=== PATIENT | male | born 1960 | race Caucasian/White ===

== ENCOUNTER 2016-09-10 19:38 | Emergency (ER) | payer OTHER, MEDICARE ==
--- NOTE | 2016-09-10 19:46 | ED AMS/SEIZURE/WEAK/DIZZY ---
History of Present Illness General Chief Complaint: Seizure Stated Complaint: SEIZURE Source: patient Exam Limitations: no limitations Vital Signs & Intake/Output Vital Signs & Intake/Output Vital Signs Date Time Temp Pulse Resp B/P B/P Pulse O2 O2 Flow FiO2 Mean Ox Delivery Rate 09/10 2314 98.0 96 18 126/66 09/10 2313 96 18 126/66 95 Room Air 09/11 2115 98.0 120 18 114/56 09/11 2115 98.0 120 18 114/56 95 Room Air 09/10 2009 98 Room Air 09/11 1939 98.6 134 18 148/76 98 Room Air Allergies Coded Allergies: No Known Allergies (09/10/16) Reconcile Medications Lisinopril 10 MG TABLET 1 TAB PO DAILY BP (Reported) Metformin HCl 500 MG TABLET 1 TAB PO BID DM (Reported) Triage Nurses Notes Reviewed? yes Onset: Abrupt Duration: minute(s): Timing: single episode today Injury Environment: home Severity: moderate Modifying Factors: Improves With: rest. Associated Symptoms: confusion HPI: 55 yo gentleman h/o prior seizure in July 2016, reportedly treated at [facility]. presents with seizures. The medics share, "He was sitting on his front stoop. His neighbor heard him "gasp for breath and breathe funny. He was unconscious for awhile... They called us... When we got there a few minutes later, he was confused, breathing funny, and just coming out of it... Now he is doing much better." He does not recall the event Past History Travel History Traveled to [place] past 21 day No Medical History Any Pertinent Medical History? see below for history Neurological: seizure Cardiovascular: hypertension Endocrine: diabetes Surgical History Surgical History: unobtainable Family History Hx Contributory? No Review of Systems Review of Systems Constitutional: Reports: no symptoms. EENTM: Reports: no symptoms. Respiratory: Reports: no symptoms. Cardiovascular: Reports: no symptoms. GI: Reports: no symptoms. Genitourinary: Reports: no symptoms. Musculoskeletal: Reports: no symptoms. Skin: Reports: no symptoms. Neurological/Psychological: Reports: no symptoms. Hematologic/Endocrine: Reports: no symptoms. Immunologic/Allergic: Reports: no symptoms. All Other Systems: Reviewed and Negative Physical Exam Physical Exam General Appearance: well developed/nourished, no apparent distress Head: atraumatic, normal appearance Eyes: Bilateral: normal appearance, PERRL, EOMI. Ears, Nose, Throat: normal pharynx, normal ENT inspection Neck: normal inspection, supple, full range of motion Respiratory: normal breath sounds, chest non-tender, no respiratory distress, quiet respiration, lungs clear Cardiovascular: regular rate/rhythm Gastrointestinal: normal bowel sounds, soft, non-tender, no organomegaly Back: normal inspection Extremities: normal range of motion Neurologic/Psych: no motor/sensory deficits, awake, alert, oriented x 3 Skin: intact, normal color, warm/dry Core Measures ACS in differential dx? No CVA/TIA Diagnosis: No Severe Sepsis Present: No Septic Shock Present: No Progress Differential Diagnosis: seizure vs pseudoseizure vs syncope vs other. Plan of Care: Orders Procedure Date/time Status TROPONIN LEVEL 09/10 2300 Complete EKG 09/10 2299 Active LIPASE 09/10 2224 Complete COMPREHENSIVE METABOLIC PANEL 09/10 2224 Complete AMYLASE 09/10 2224 Complete PROLACTIN 09/10 1957 Complete Pathway - chart 09/10 1953 Active CIWA 09/10 1953 Active URINE DRUG SCREEN FOR ER ONLY 09/10 1946 Complete URINALYSIS 09/10 1946 Complete LIPASE 09/10 1946 Complete HEPATIC FUNCTION PANEL 09/10 1946 Complete ETHANOL 09/10 1946 Complete CBC WITHOUT DIFFERENTIAL 09/10 1946 Complete BASIC METABOLIC PANEL 09/10 1946 Complete AMYLASE 09/10 1946 Complete EKG 09/10 1946 Active Current Medications Sig/Puja Start time Last Medication Dose Stop Time Status Admin Lorazepam 2 MG Q2P PRN 09/11 1999 AC (Ativan) Lorazepam 1 MG Q2P PRN 09/11 1999 AC (Ativan) Laboratory Tests 09/10/16 2254: Troponin I < 0.01 09/10/16 225: Anion Gap 10, Estimated GFR > 60, BUN/Creatinine Ratio 12.2, Glucose 117 H, Calcium 8.8, Total Bilirubin 1.7 H, AST 70 H, ALT 50, Alkaline Phosphatase 70, Total Protein 6.7, Albumin 3.7, Globulin 3.0, Albumin/Globulin Ratio 1.2, Amylase 123 H, Lipase 444 H 09/10/162: Urine Opiates Screen < 100.00, Methadone Screen < 40, Barbiturate Screen < 60, Ur Phencyclidine Scrn < 6.00, Amphetamines Screen < 100, U Benzodiazepines Scrn < 85, Urine Cocaine Screen < 50, Urine Cannabis Screen < 5.00, Urinalysis MOD H , Urine Color YEL, Urine Clarity HAZY H, Urine pH 6.0, Ur Specific [place] 1.025, Urine Protein 100 H, Urine Ketones TRACE H, Urine Nitrite NEG, Urine Bilirubin NEG, Urine Urobilinogen 4.0 H, Ur Leukocyte Esterase SMALL H, Ur Microscopic SEDIMENT EXAMINED, Urine RBC 1-3, Urine WBC 15-25 H, Ur Epithelial Cells RARE, Urine Bacteria FEW H, Hyaline Casts FEW H, Urine Hemoglobin TRACE- LYSED H, Urine Glucose 100 H 09/10/161999: Prolactin 46.3 H 09/10/16 2000: Anion Gap 23 H, Estimated GFR > 60, BUN/Creatinine Ratio 10.9, Glucose 148 H, Calcium 9.6, Total Bilirubin 2.2 H, Direct Bilirubin 1.0 H, AST 105 H, ALT 49 , Alkaline Phosphatase 79, Total Protein 7.8, Albumin 4.7, Amylase 146 H, Lipase 482 H, CBC w Diff NO MAN DIFF REQ, RBC 3.66 L, MCV 86.8, MCH 28.4, RDW 16.9 H, MPV 7.3 L, Gran % 55.0, Lymphocytes % 29.6, Monocytes % 12.1 H, Eosinophils % 2.2, Basophils % 1.1, Absolute Granulocytes 3.5, Absolute Lymphocytes 1.9, Absolute Monocytes 0.8 H, Absolute Eosinophils 0.1, Absolute Basophils 0.1, PUBS MCHC 32.7 L, Serum Alcohol < 10.0 Diagnostic Imaging: Viewed by Me: CT Scan. Discussed w/RAD: CT Scan. Radiology Impression: HEAD/CERVICAL CT... NO ACUTE CHANGE... FULL REPORT BELOW. Initial ED EKG: normal axis, normal intervals, normal p-waves, normal QRS complex, normal sinus rhythm Repeat EKG: unchanged Comments: PATIENT: SHARMAINE HENRY PRESENT AGE: 55 PATIENT ACCOUNT NO: [id number] : 56 LOCATION: [facility] ORDERING PHYSICIAN: ZAIDA RODRIGUEZ MD SERVICE DATE: 09/10/16 EXAM TYPE: CAT - CT CERV SPINE WO IV CONTRAST; CT HEAD WO IV CONTRAST EXAMINATION: CT HEAD WITHOUT CONTRAST CT CERVICAL SPINE WITHOUT CONTRAST CLINICAL INFORMATION: Mental status change. Fall, trauma, seizure. COMPARISON: No relevant prior studies are available for comparison. TECHNIQUE: Contiguous axial imaging was performed from the skull base to vertex without intravenous administration of contrast. Axial images of the cervical spine were obtained. Sagittal and coronal reconstructions were provided and reviewed. DLP: 1199.38 mGy-cm (total). FINDINGS: CT HEAD: The ventricles and sulci are prominent consistent with patient's age. No visualized masses or midline shift are seen. There is no intra-axial or extra-axial hemorrhage. There are no fluid collections. Mild decreased attenuation is seen in the periventricular white matter compatible with chronic small vessel ischemic disease. The short-white discrimination is preserved. There is mucoperiosteal thickening of the posterior right ethmoid air cells. Otherwise, the included paranasal sinuses and mastoid air cells are well aerated. The calvarium is intact. CT CERVICAL SPINE: Cervical lordosis is preserved. There is no evidence of a fracture or dislocation of the cervical spine. The disc height spaces are maintained. Endplate osteophytes are seen within the lower cervical spine. There is no neural foraminal narrowing. There is no central canal stenosis. The visualized skull base is unremarkable.The prevertebral soft tissue appears unremarkable. The visualized lung apices are unremarkable. IMPRESSION: CT HEAD: No intracranial hemorrhage or mass effect. Mild generalized atrophy and mild chronic small vessel white matter ischemic changes. CT CERVICAL SPINE: No fracture or subluxation. Mild degenerative changes within the lower cervical spine. DICTATED BY: BAM FARIAS MD DATE/TIME DICTATED:09/10/162035 SECURITY ADVISOR:SHAHBAZ DATE/TIME TRANSCRIBED:09/10/162035 CONFIDENTIAL, DO NOT COPY WITHOUT APPROPRIATE AUTHORIZATION. <Electronically signed in Other Vendor System> SIGNED BY: BAM FARIAS MD [id number] Departure Departure Disposition: STILL A PATIENT Condition: Stable Clinical Impression Primary Impression: Mental status change resolved Referrals: ALIN RANDLE MD Departure Forms: Customer Survey General Discharge Information Comments 09/10/16, 22:53...discussed with dr. beard... pt safe for discharge... he will see her in follow up. 09.10.16, 23:47... pt feeling well, awake and alert. he declines admission. his ciwa score is zero, with a negative alcohol level. He does not confer significant alcohol intake (3 beers intermittently).
[2016-09-10] MEDS ORDERED: METFORMIN HCL500 M3 PO (19:53)
[2016-09-10] MEDS ORDERED: LISINOPRIL10 M1 PO (19:54)
[2016-09-10 20:08] LABS: ABSOLUTE BASOPHIL COUNT 0.1 /CUMM (0.0-0.2); ABSOLUTE EOSINOPHIL COUNT 0.1 /CUMM (0.0-0.7); ABSOLUTE GRANULOCYTE CT 3.5 /CUMM (1.4-6.5); ABSOLUTE LYMPH COUNT 1.9 /CUMM (1.2-3.4); ABSOLUTE MONOCYTE COUNT 0.8 /CUMM (0.10-0.60); BASOPHIL % 1.1 % (0.0-2.0); EOSINOPHIL % 2.2 % (0-5); HEMATOCRIT 31.8 % (42-52); MEAN CORPUSCULAR HGB 28.4 PG (27.0-31.0); MEAN CORPUSCULAR HGB CONC 32.7 G/DL (33.0-37.0); MEAN CORPUSCULAR VOLUME 86.8 FL (80.0-94.0); MEAN PLATELET VOLUME 7.3 FL (7.4-10.4); PLATELET COUNT 187 /CUMM (130-400); RBC DISTRIBUTION WIDTH 16.9 % (11.5-14.5); RED BLOOD CELL CT 3.66 /CUMM (4.70-6.10); WHITE BLOOD CELL COUNT 6.4 /CUMM (4.8-10.8)
--- NOTE | 2016-09-10 21:13 | CT SCAN REPORT ---
EXAMINATION: CT HEAD WITHOUT CONTRAST CT CERVICAL SPINE WITHOUT CONTRAST CLINICAL INFORMATION: Mental status change. Fall, trauma, seizure. COMPARISON: No relevant prior studies are available for comparison. TECHNIQUE: Contiguous axial imaging was performed from the skull base to vertex without intravenous administration of contrast. Axial images of the cervical spine were obtained. Sagittal and coronal reconstructions were provided and reviewed. DLP: 1199.38 mGy-cm (total). FINDINGS: CT HEAD: The ventricles and sulci are prominent consistent with patient's age. No visualized masses or midline shift are seen. There is no intra-axial or extra-axial hemorrhage. There are no fluid collections. Mild decreased attenuation is seen in the periventricular white matter compatible with chronic small vessel ischemic disease. The short-white discrimination is preserved. There is mucoperiosteal thickening of the posterior right ethmoid air cells. Otherwise, the included paranasal sinuses and mastoid air cells are well aerated. The calvarium is intact. CT CERVICAL SPINE: Cervical lordosis is preserved. There is no evidence of a fracture or dislocation of the cervical spine. The disc height spaces are maintained. Endplate osteophytes are seen within the lower cervical spine. There is no neural foraminal narrowing. There is no central canal stenosis. The visualized skull base is unremarkable.The prevertebral soft tissue appears unremarkable. The visualized lung apices are unremarkable. IMPRESSION: CT HEAD: No intracranial hemorrhage or mass effect. Mild generalized atrophy and mild chronic small vessel white matter ischemic changes. CT CERVICAL SPINE: No fracture or subluxation. Mild degenerative changes within the lower cervical spine.
[2016-09-10 23:15] VITALS: BP 126/66
== END 2016-09-10 23:55 ==
LOC: ERH 19:38
PROVIDERS: Pediatrics
DX: R41.82 Altered mental status, unspecified (principal); I10 Essential (primary) hypertension; E11.9 Type 2 diabetes mellitus without complications; Z79.84 Long term (current) use of oral hypoglycemic drugs
CPT/HCPCS: 80307; 81001; 93005; 93010; 96374; G0480